=== PATIENT | female | born 1975 ===

== ENCOUNTER 2017-01-12 16:17 | Emergency (ER) | payer MEDICARE, MEDICAID, BC ==
[2017-01-12 16:29] VITALS: BP 108/69
--- NOTE | 2017-01-12 16:59 | UC ---
Complaint Female HPI - HPI Summary HPI Summary: 41 yo female with Down's syndrome presents with 2 week hx of suprapubic pain/ foul smell and dysuria States if feels like a "base ball down there" - History Of Current Complaint Chief Complaint: UCGU Stated Complaint: UTI Time Seen by Provider: 01/12/17 16:50 Hx Obtained From: Patient Hx Last Menstrual Period: maybe last week Onset/Duration: Gradual Onset, Lasting Weeks Timing: Constant Severity Initially: Mild Severity Currently: Mild Pain Intensity: 4 Pain Scale Used: 0-10 Numeric Aggravating Factor(s): Urination Alleviating Factor(s): Nothing Associated Signs And Symptoms: Positive: Vaginal Discharge - ??? - Allergies/Home Medications Allergies/Adverse Reactions: Allergies Allergy/AdvReac Type Severity Reaction Status Date / Time Erythromycin Allergy GI Upset Verified 01/12/17 16:29 Home Medications: Home Medications Multivitamins/Minerals TAB* [Thera M Plus TAB*] 1 tab PO DAILY 01/12/17 [ History Confirmed 01/12/17] PARoxetine HCL TAB* [Paxil TAB*] 20 mg PO DAILY 01/12/17 [History Confirmed 04/18] Thyroid [Lennox Thyroid] 60 mg PO DAILY 01/12/17 [History Confirmed 01/12/17] PMH/Surg Hx/FS Hx/Imm Hx Previously Healthy: Yes GI/ History: Other Other GI/ History: fibroids - Surgical History Surgical History: Yes Surgery Procedure, Year, and Place: tubal ligation age 26 - Social History Alcohol Use: None Substance Use Type: None Smoking Status (MU): Never Smoked Tobacco Review of Systems Constitutional: Negative Skin: Negative Eyes: Negative ENT: Negative Respiratory: Negative Cardiovascular: Negative Gastrointestinal: Other - suprapubic pain Genitourinary: Dysuria Neurovascular: Negative Musculoskeletal: Negative Neurological: Negative Psychological: Negative Is Patient Immunocompromised?: No All Other Systems Reviewed And Are Negative: Yes Physical Exam Triage Information Reviewed: Yes Appearance: Well-Appearing, No Pain Distress, Well-Nourished, Other: - STIGMATA OF TRISOMY 21 Vital Signs: Initial Vital Signs Temp 98.3 F 01/12/17 16:22 Pulse 66 01/12/17 16:22 Resp 16 01/12/17 16:22 BP 108/69 01/12/17 16:22 Pulse Ox 99 01/12/17 16:22 Vital Signs Reviewed: Yes Eyes: Positive: Conjunctiva Clear ENT: Positive: Hearing grossly normal. Negative: Nasal congestion, Nasal drainage, Trismus, Muffled/hoarse voice Neck: Positive: Supple, Nontender Respiratory: Positive: Lungs clear, Normal breath sounds, No respiratory distress Cardiovascular: Positive: RRR, No Murmur Abdomen Description: Positive: Nontender, No Organomegaly, Soft. Negative: CVA Tenderness (R), CVA Tenderness (L), Pulsatile Mass, Splenomegaly Bowel Sounds: Positive: Present Musculoskeletal: Positive: No Edema Neurological: Positive: Alert Psychological Exam: Normal Skin Exam: Normal Complaint Female Dx - Course Course Of Treatment: Desires to speak to female provider before consenting to a pelvic exam. 5:30 pm- external exam done by SOLOMON Saavedra- pt refused speculum or bilmanual-no obvious lesions noted but fishy smell noted c/w bv - Differential Dx/Diagnosis Provider Diagnoses: vaginitis,? BV Discharge - Discharge Plan Condition: Stable Disposition: HOME Prescriptions: Metronidazole [Flagyl 500 MG TAB] 500 mg PO BID #14 tab Patient Education Materials: Vaginitis (ED) Referrals: Gagandeep Villagomez MD [Primary Care Provider] - Additional Instructions: see manager it security as planned recheck for fever/vomiting or increased pain tests are pending
--- NOTE | 2017-01-14 16:49 | UC ---
Progress - Progress Note Progress Note: CX (-). NO CHANGES.
--- NOTE | 2017-01-14 17:48 | ED ---
Progress - Progress Note Progress Note: UCX (-). BLAINE/TRICH/GC/CHLAM (-). GARDNERELLA (+). CONTINUE FLAGYL. IF WORSE PCP Course/Dx - Course Course Of Treatment: Desires to speak to female provider before consenting to a pelvic exam. 5:30 pm- external exam done by SOLOMON Saavedra- pt refused speculum or bilmanual-no obvious lesions noted but fishy smell noted c/w bv - Diagnoses Provider Diagnoses: STD (female)
== END 2017-01-12 17:54 | disposition home or self-care (01) ==
LOC: UCEAST 16:17
DX: N76.0 Acute vaginitis (principal); Q90.9 Down syndrome, unspecified
CPT/HCPCS: 81003; 87086; 87480; 87491; 87510; 87591; 87661; 99213; G0463